=== PATIENT | female | born 1995 | race Caucasian/White ===

== ENCOUNTER 2017-03-01 10:58 | Emergency (ER) | payer BC ==
[~2017-03-01] VITALS: Ht 165.1 cm; Wt 61.2 kg
[~2017-03-01 10:58] MED LIST: AZO STANDARD95 MG PO; COMPAZINE25 MG RC; CYCLOBENZAPRINE10 MG; DILAUDID2 MG PO; HYDROMORPHONE HC2 MG PO; IBUPROFEN600 MG PO; KEFLEX500 MG PO; MACROBID 100 M100 MG PO; PHENERGAN25 MG RC; PRENATAL 19 TA1 EAC1 PO; PROZAC20 MG PO; REGLAN10 MG PO; TRAZODONE HCL50 MG PO; ZOFRAN ODT4 MG PO
[2017-03-01] MEDS ORDERED: AMITRIPTYLINE H75 MG PO (11:18)
[2017-03-01] MEDS ORDERED: FLUOXETINE HCL10 M1 PO (11:19)
[2017-03-01] MEDS ORDERED: ZOFRAN ODT4 MG PO (14:27)
[2017-03-02] MEDS ORDERED: PHENERGAN50 MG PR (14:53)
== END 2017-03-01 15:12 | disposition home or self-care (01) ==
LOC: ED 10:58
DX: G43.A0 Cyclical vomiting, in migraine, not intractable (principal); J45.909 Unspecified asthma, uncomplicated; Z90.49 Acquired absence of other specified parts of digestive tract; Z79.899 Other long term (current) drug therapy
CPT/HCPCS: 74177; 80053; 81001; 82150; 83690; 84703; 85025; 87088; 96361; 96372; 96374; 96375; 99284; J2550; J3480; J3486; J7030; Q9967

== ENCOUNTER 2017-03-02 14:31 | Emergency (ER) | payer BC ==
[~2017-03-02] VITALS: Ht 165.1 cm; Wt 61.2 kg
[~2017-03-02 14:31] MED LIST changes: +AMITRIPTYLINE H75 MG PO; +FLUOXETINE HCL10 M1 PO
[2017-03-02] MEDS ORDERED: PHENERGAN50 MG PR (14:53)
== END 2017-03-02 16:14 | disposition home or self-care (01) ==
LOC: ED 14:31
DX: G43.A0 Cyclical vomiting, in migraine, not intractable (principal); Z90.49 Acquired absence of other specified parts of digestive tract; Z79.899 Other long term (current) drug therapy
CPT/HCPCS: 96372; 99283; J2550; J3486

== ENCOUNTER 2017-03-03 06:52 | Inpatient (IN) | payer BC ==
[~2017-03-03] VITALS: Ht 165.1 cm; Wt 60.7 kg
[~2017-03-03 06:52] MED LIST changes: +PHENERGAN50 MG PR
--- NOTE | 2017-03-03 09:46 | NUR ---
PATIENT TX FROM ER TO ROOM 123 IN A STRETCHER, PATIENT IS ALERT AND ORIENTED UPON ARRIVAL AND ON RA. SHE HAS KCL AND IV FLUIDS RUNING THROUGH AN IV PUMP. REPORT RECEIVED FROM SHO DENT. PATIENT STANDBY ASSIST UP TO THE BATHROOM TO VOID, ORAL CARE DONE.
--- NOTE | 2017-03-03 10:13 | NUR ---
PATIENT VOIDED 800 MLS OF TEA COLORED URINE, VERY STRONG ODOR TO IT. PATIENT IS STEADY ON HER FEET NO C/O DIZZINESS. NEW BAG OF IV FLUIDS AND IV TUBING HUNG AND IV KCL RUNNING. CLEAR LIQUIDS PROVIDED FOR HER AT THIS TIME.
--- NOTE | 2017-03-03 10:31 | NUR ---
REPORT RECIEVED FROM JAILENE NOGUERA WHOM SHE CHECKED IN. PT STATES THAT SHE IS FEELING PRETTY GOOD CURRENTLY. THE K+ IS BURNING HER HAND. FIXED IV TO RUN CONCURRENT, PT STATES IT FEELS BETTER.
--- NOTE | 2017-03-03 11:44 | NUR ---
PT APPEARS TO BE RESTING WITH EYES CLOSED. IVF INFUSING WNL.
--- NOTE | 2017-03-03 13:34 | NUR ---
PT CONTINUES TO REST IN BED WITH EYES CLOSED. APPEARS TO HAVE HAD A CLEAR TRAY AND DRANK A SMALL AMT.
--- NOTE | 2017-03-03 15:00 | NUR ---
PT AWAKE AND ASKED FOR WARM BLANKETS. STATES SHE TRIED TO EAT SOME JELLO BUT IT MADE HER NAUSEOUS. CHANGED GOWN SHE WAS SWEATY. PT DENIES CONCERNS.
--- NOTE | 2017-03-03 18:04 | NUR ---
PTCALLED TO SAY THAT SHE IS NAUSEOUS AGAIN. ADMINSTERED ZOFRAN. PT ASKEE FOR DILAUIDID. WILL CALL AND LET DR BURCIAGA KNOW.
--- NOTE | 2017-03-03 18:56 | NUR ---
DR BURCIAGA IN TO SEE PT. PT COMPLAINING OF MID ABDOMINAL PAIN. STATES THAT DILAUIDID OR MORPHINE ARE THE ONLY THINGS THAT HELP THE PAIN. DR EXAMINED AND STATED THAT HE WOULD ORDER A SMALL DOSE OF MORPH.
--- NOTE | 2017-03-03 19:15 | NUR ---
SHIFT REPORT RECIEVED. PATIENT IN THE SHOWER INDEPENDENTLY.
--- NOTE | 2017-03-03 19:45 | NUR ---
PATIENT REQUESTED PRN PAIN MEDS, WHICH WAS GIVEN TO HER. RATED PAIN AT 8/10 IN HER UPPER ABD. PATIENT RESTING IN BED. STATES SHE HAS NOT VOMITED FOR CLOSE TO 30 MINS. CALL LIGHT IN REACH.
--- NOTE | 2017-03-03 20:58 | NUR ---
PRN MEDS GIVEN FOR NAUSEA. PATIENT HAD 300MLS OF LIGHT GREEN EMESIS. EVEING MEDS GIVEN PER ORDER. NEW FLUIDS STARTED PER ORDER. IV SITE WNL. PATIENT HAS FRIEND IN THE ROOM. PATIENT REQUESTING MD BE CONTACTED TO REQUEST PRN KEYSHAID. PATIENT STATES "THAT IS THE ONLY THING THAT HELPED IN THE ER EARLIER". EDUCATED PATIENT AND SHE AGREES TO STICK TO CARE PLAN THAT IS IN PLACE NOW. CALL LIGHT IN REACH.
--- NOTE | 2017-03-03 22:20 | NUR ---
PATIENT REQUESTED WARM BLANKETS. STATES THE PRN BENADRYL HELPED HER NAUSEA. STATES HER STOMACH IS HURTING BUT DOES NOT FEEL LIKE SHE NEEDS TO THROW UP AT THIS TIME. CALL LIGHT IN REACH. DENIES ANY FURTHER NEEDS AT THIS TIME.
--- NOTE | 2017-03-03 23:00 | NUR ---
PATIENT REQUESTING PRN PAIN MEDS, WHICH WERE GIVEN TO HER. SHE IS HAVING EPIGASTRIC AND UPPER ABD PAIN. STATES IT FEELS SORE AND BURNING. VS DONE, WNL. PATIENT STATES NAUSEA HAS IMPROVED SLIGHTLY. RESTING IN BED. IVF INFUSING. CALL LIGHT IN REACH.
--- NOTE | 2017-03-03 23:32 | NUR ---
PATIENT REQUESTED WARM BLANKETS. PROVIDED BLANKETS AND A HEAT PACK. PATIENT REPORTS HER PAIN HAS IMPORVED TO A 5/10. WILL CONTINUE TO MONITOR.
--- NOTE | 2017-03-04 00:25 | NUR ---
PATIENT REQUESTED PRN NAUSEA MEDS, WHICH WERE GIVEN TO HER. PATIENT STATES THAT NAUSEA HAS IMPORVED. NO MORE VOMITING AT THIS TIME. CALL LIGHT IN REACH. PATIENT WATCHING TV.
--- NOTE | 2017-03-04 03:00 | NUR ---
PATIENT RESTING IN BED. EYE CLOSED. RR16. CALL LIGHT IN REACH.
--- NOTE | 2017-03-04 05:10 | NUR ---
PATIENT REQUESTED MORE WARM BLANKETS AND PRN NAUSEA MEDS, WHICH WERE PROVIDED. NEW BAG OF FLUIDS STARTED. IV SITE WNL. PATIENT DENIES NEED FOR PRN PAIN MEDS. STATES THAT HER PAIN IS "FINE" RIGHT NOW. CALL LIGHT IN REACH.
--- NOTE | 2017-03-04 05:23 | NUR ---
PATIENT RESTED ON AND OFF THROUGHOUT THE NIGHT. NAUSEA HAS IMPROVED THROUGHOUT NIGHT. PRN MEDS FOR NAUSEA GIVEN X3. EMESIS X2 ON EVEING SHIFT. IVF INFUSING. INDEPENDENT IN ROOM. PRN PAIN MEDS GIVEN X2. PATIENT REQUEST FREQUENT WARM BLANKETS AND HEATING PACKS FOR COMFORT. CLEAR LIQUIDS, TOLERATING SMALL SIPS OF WATER.
--- NOTE | 2017-03-04 06:57 | NUR ---
PATIENT RESTING IN BED. REPORTED PAIN AT 6/10. PATIENT APPEARED VERY UNCOMFORTABLE AND RESTLESS. WARM BLANKETS PROVIDED. PRN PAIN MEDS ADMINISTERED. PATIENT STATES NAUSEA IS MINIMAL AT THE MOMENT. CALL LIGHT IN REACH.
--- NOTE | 2017-03-04 07:40 | NUR ---
REPORT RECEIVED FROM PAUL DENT AT 0710. PT SLEEPING IN BED. IVF INFUSING AT 125. ALLOWING PATIENT TO SLEEP NOW.
--- NOTE | 2017-03-04 07:51 | NUR ---
PATIENT AWAKE IN BED. WHITEBOARD UPDATED. REFILLED ICE WATER, MADE NEW HEAT PACKS.
--- NOTE | 2017-03-04 09:34 | NUR ---
REFRESHED PATIENT WATER, EMPTIED HAT IN TOILET
--- NOTE | 2017-03-04 11:44 | NUR ---
PATIENT IN BED ASLEEP. DOING WELL.
--- NOTE | 2017-03-04 12:48 | NUR ---
PATIENT C/O NAUSEA, PATIENT GIVEN 4MG OF ZOFRAN IV AT THIS TIME. NEW BAG OF IV FLUID HUNG AT THIS TIME.
--- NOTE | 2017-03-04 13:57 | NUR ---
PT AMBULATED HALLS AFTER ZOFRAN TO TRY TO RELIEVE ABD PAIN PER NURSE SUGGESTION. PT REPORTED DECREASE IN PAIN WITH AMBULATION. PT FOUND LYING IN BED AND REPORTS ABD PAIN. CONVENED WITH DR BURCIAGA ABOUT PLAN OF CARE. WILL ENCOURAGE PATIENT TO SIT UP AND AMBULATE. HOT PACK PROVIDED. ABD PAIN DESCRIBED 7/10 AND "TINY PUNCHES ALL OVER MY STOMACH THAT COME AND GO". WILL SEE IF PAIN RESOLVES WITH NON-PHARM METHODS.
--- NOTE | 2017-03-04 14:31 | NUR ---
PT HAD 400ML EMESIS INTO EMESIS BAG. COMPAZINE AND MORPHINE GIVEN FOR NAUSEA AND ABDOMINAL PAIN.
--- NOTE | 2017-03-04 15:47 | NUR ---
PATIENT DOING WELL. NURSE GOT NEW HEAT PACK FOR PATIENT.
--- NOTE | 2017-03-04 16:13 | NUR ---
HELPED SHAMPOO AND CONDITION PATIEN'T HAIR AND CHANGED BED LINEN. STILL IN SHOWER.
--- NOTE | 2017-03-04 17:35 | NUR ---
pt given zofran at 1700. bile-colored emesis at 1730. will attempt to give KCL PO tabs if able.
--- NOTE | 2017-03-04 17:47 | NUR ---
VOMITED 750ML TODAY. ZOFRAN AND COMPAZINE GIVEN PRN. MORPHINE GIVEN X1. LR+20KCL @ 65. INDEPENDENT IN ROOM. LAC IV S/L. C/O ABDOMINAL PAIN.
--- NOTE | 2017-03-04 20:00 | NUR ---
RECEIVED REPORT AT 1900. FOUND PT IN BED, PT DENIED N/V AT THAT TIME. PAIN IS TOLERABLE STATED BY PT. PT IS IN BED WATCHING TV
--- NOTE | 2017-03-04 22:00 | NUR ---
V/S ARE WDL, BOWEL TONES ARE PRESENT IN ALL QUADRANTS, PT HAD SOME NAUSEA. COMPRAZINE WAS GIVEN PER ORDER. PT HAS HEAT PACKS ON ABD. ALL LOBES ARE CLEAR. NO NEW ISSUES NOTED SO FAR. PT SO FAR IS ONLY ABLE TO TOLERATE A CLEAR LIQUID DIET.
--- NOTE | 2017-03-05 00:38 | NUR ---
PT IS SLEEPING AT THIS TIME.
--- NOTE | 2017-03-05 03:12 | NUR ---
PAIN IS WELL CONTROLLED WITH PRN PAIN MEDS AND SO IS N/V. PT IS PASSING GAS AND IS ABLE TO HOLD CLEAR LIQUIDS. NO EMESIS THIS SHIFT SO FAR. WILL TRY SALTINES LATER THIS MORNING. PT BACK IN BED AT THIS TIME.
--- NOTE | 2017-03-05 06:01 | NUR ---
V/S ARE WDL, I&O ARE WDL, NAUSEA IS WELL CONTROLLED WITH COMPAZINE, PAIN IS WELL CONTROLLED WIT PRN PAIN MEDS, PT DID NOT VOMIT THIS SHIFT AND WILL TRY SOME TOAST OR CRACKERS FOR BREAKFAST. BOWEL TONES ARE ACTIVE, ABD IS TENDER TO TOUCH. OTHERWISE NO NEW ISSUES NOTED.
--- NOTE | 2017-03-05 06:30 | NUR ---
REFILLED ICE WATER. REQUESTED 2 HOTPACKS.
--- NOTE | 2017-03-05 07:45 | NUR ---
PT SLEEPING. UPDATE BORD AND LET SLEEP. CHECK ON LATER
--- NOTE | 2017-03-05 08:00 | NUR ---
PT SLEEPING SOUNDLY, RESP EVEN AND UNLABORED.
--- NOTE | 2017-03-05 10:00 | NUR ---
PT SITTING UP IN BED. ATE TOAST AND EMELYN WELL AFTER BEING PREMEDICATED WITH ZOFRAN. REQUESTING TO ORDER A COUPLE MORE THINGS TO EAT. DENIES PAIN OR OTHER CONCERNS. ALERT AND ORIENTED. CALL LIGHT WITHIN REACH. INDEPENDENT IN ROOM.
[2017-03-05] MEDS ORDERED: PROCHLORPERAZIN10 MG PO (11:24)
[2017-03-05] MEDS ORDERED: ONDANSETRON HCL4 MG PO (11:26)
--- NOTE | 2017-03-05 11:46 | NUR ---
PT AWAKE IN BED. ORDERED PT SOME FOOD. PT IS DOING WELL. GAVE HER SOME DEODERANT. CALL LIGHT IN REACH.
== END 2017-03-05 13:56 | disposition home or self-care (01) | DRG 683 ==
LOC: ED 06:52 → MS 09:24
PROVIDERS: ADMIT Internal Medicine
DX: N17.9 Acute kidney failure, unspecified (principal); E87.2 Acidosis; E87.6 Hypokalemia; F39 Unspecified mood [affective] disorder; E87.5 Hyperkalemia
CPT/HCPCS: 36415; 80048; 80069; 81001; 82010; 82150; 83036; 83690; 83735; 84703; 85025; 87088; 87184; 96361; 96365; 96375; 99285; J0780; J1170; J1200; J2270; J2405; J2550; J3480; J7030; J7120

== ENCOUNTER 2017-03-08 11:38 | Emergency (ER) | payer BC ==
[~2017-03-08] VITALS: Ht 165.1 cm; Wt 60.7 kg
[~2017-03-08 11:38] MED LIST changes: +ONDANSETRON HCL4 MG PO; +PROCHLORPERAZIN10 MG PO
[2017-03-08] MEDS ORDERED: ONDANSETRON ODT8 MG PO (17:38)
== END 2017-03-08 17:45 | disposition home or self-care (01) ==
LOC: ED 11:38
DX: E87.6 Hypokalemia (principal); G43.A0 Cyclical vomiting, in migraine, not intractable; F17.200 Nicotine dependence, unspecified, uncomplicated; Z90.49 Acquired absence of other specified parts of digestive tract; Z79.899 Other long term (current) drug therapy
CPT/HCPCS: 36415; 80053; 81001; 83690; 84132; 84703; 85025; 96365; 96367; 96372; 96375; 96376; 99284; J1200; J2405; J2765; J3480; J3486; J7030

== ENCOUNTER 2017-03-21 16:05 | Emergency (ER) | payer BC ==
[~2017-03-21] VITALS: Ht 165.1 cm; Wt 59.0 kg
[~2017-03-21 16:05] MED LIST changes: +ONDANSETRON ODT8 MG PO
== END 2017-03-21 19:07 | disposition home or self-care (01) ==
LOC: ED 16:05
DX: G43.A0 Cyclical vomiting, in migraine, not intractable (principal); J45.909 Unspecified asthma, uncomplicated; Z87.891 Personal history of nicotine dependence; Z90.49 Acquired absence of other specified parts of digestive tract; Z98.890 Other specified postprocedural states; Z87.440 Personal history of urinary (tract) infections; Z79.899 Other long term (current) drug therapy
CPT/HCPCS: 81001; 84703; 96360; 99283; J7030

== ENCOUNTER 2018-11-18 19:43 | Observation (INO) | payer BC ==
[~2018-11-18] VITALS: Ht 165.1 cm; Wt 48.1 kg
--- OUTSIDE RECORDS SUMMARY | 2018-11-18 19:46 | XMS ---
PreManage Notification: CLAIR MONTANEZ Security Technician Preventative Medicine Events No recent Security Events currently on file CRITERIA MET - Group Notification CARE PROVIDERS [facility] Current PHONE: Unknown TRELL GALLO [facility] Current PHONE: Unknown ANTONINA LEIVATSafai [facility] Current PHONE: Unknown [facility] Current PHONE: Unknown Trell Gallo MD PHONE: Unknown [facility] Primary [facility] Current PHONE: Unknown Nicolle has no Care Guidelines for this patient. [place] VISIT COUNT (12 MO.) 9 Henry Rahman [address] [place], [place] [address] TOTAL 10 NOTE: Visits indicate total known visits. ED/UCC VISIT TRACKING (12 MO.) 11/18/2018 19:44 [facility] [place] TYPE: Emergency COMPLAINT: - ABD PAIN/VOMITING [facility]2018 17:21 [facility] DIAGNOSES: - Generalized abdominal pain - Cellulitis of back [any part except buttock] - Nausea with vomiting, unspecified - ABD PAIN/VOMITING/BLISTERS ON BACK 07/18/2018 07:44 [facility] [place] TYPE: Emergency DIAGNOSES: - NAUSEA/ABD PAIN - Cannabis use, unspecified with other cannabis-induced disorder - Unspecified kidney failure - Periumbilical pain - Dehydration 07/15/2018 08:24 [facility] [place] TYPE: Emergency DIAGNOSES: - vomiting - Cannabis abuse, uncomplicated - Hypokalemia - Cannabis abuse with other cannabis-induced disorder - Dehydration 05/25/2018 07:18 [facility] [place] TYPE: Emergency DIAGNOSES: - abd pain - Cyclical vomiting, not intractable 05/13/2018 22:01 [facility] [place] TYPE: Emergency DIAGNOSES: - Dehydration - Cyclical vomiting, not intractable - ABD PN/VOMITING 04/12/2018 05:50 [facility] [place] TYPE: Emergency DIAGNOSES: - Emesis - Other specified abnormal findings of blood chemistry - Cannabis use, unspecified with other cannabis-induced disorder - Nausea with vomiting, unspecified - Hyperglycemia, unspecified 02/04/2018 07:25 [facility] [place] TYPE: Emergency DIAGNOSES: - Generalized abdominal pain - Hypokalemia - Cyclical vomiting, intractable - n/v, abdominal pain - Dehydration - Cannabis abuse with other cannabis-induced disorder 12/23/2017 11:03 [facility] [place] TYPE: Emergency DIAGNOSES: - Cyclical vomiting, not intractable - abd pain - Urinary tract infection, site not specified 12/18/2017 08:58 [facility] [place] TYPE: Emergency DIAGNOSES: - n/v, abdominal pain INPATIENT VISIT TRACKING (12 MO.) 07/18/2018 07:44 [facility] [place] TYPE: [facility] DIAGNOSES: - Cannabis use, unspecified with other cannabis-induced disorder - Dehydration - Periumbilical pain - Unspecified kidney failure 04/12/2018 05:50 [facility] [place] TYPE: Medical Surgical DIAGNOSES: - Cannabis use, unspecified with other cannabis-induced disorder - Nausea with vomiting, unspecified - Hyperglycemia, unspecified - Other specified abnormal findings of blood chemistry - Cyclical vomiting, intractable 12/18/2017 08:58 [facility] [place] TYPE: Medical Surgical DIAGNOSES: - Dehydration - Cyclical vomiting, not intractable [email or web address]
--- NOTE | 2018-11-18 23:45 | NUR ---
REPORT RECIEVED FROM ED. pt ARRIVED. AMBULATED TO BED FROM STRETCHER. ABRASIONS/HYDE ON BACK, pt STATED "THOSE ARE FROM THE SHOWER". pt REPORTS NAUSEA AND 8/10 PAIN IN HER ABD. PRN PAIN MEDICATION GIVEN (SEE MAR). SISTER AT BEDSIDE. WARM PACK PROVIDED. pt UP TO SHOWER, INDEPENDENT IN ROOM. CALL LIGHT WITHIN REACH.
--- NOTE | 2018-11-19 00:27 | NUR ---
pt REPORTED PAIN IS "SLIGHTLY BETTER" NAUSEA MEDICATION GIVEN (SEE MAR). NEW HOT PACK PROVIDED. CALL LIGHT WITHIN REACH. NO FURTHER REQUESTS AT THIS TIME.
--- NOTE | 2018-11-19 01:28 | NUR ---
ROUNDED ON pt. REPORTED THAT THERE HAS BEEN NO RELIEF FROM PAIN MEDS. NO REQUESTS AT THIS TIME. CALL LIGHT WTIN REACH.
--- NOTE | 2018-11-19 02:00 | NUR ---
PATIENT FOUND UP IN THE SHOWER. REPORTS ONGOING NAUSEA AND ABD PAIN. TEACHING SPECIALISTS ASSISTED PATIENT BACK TO BED. PATIENT DECLINED TO PUT GOWN ON. IV SITE WET, REENFORCED WITH TAPE. PATIENT REQUESTING PAIN MEDS. PRN MORPHINE PROVIDED, BENADRYL FOR NAUSEA. DISCUSSED IMPORTANCE OF CALLING FOR ASSITANCE AND NOT GETTING OUT OF BED WITH IV FLUIDS AND SEDATING DRUGS. PATIENT AGREEABLE. DENIES FURTHER NEEDS. TEACHING SPECIALISTS IN ROOM FOR VS.
--- NOTE | 2018-11-19 03:02 | NUR ---
CALL LIGHT ON. pt UP TO SHOWER, IV WRAPPED. CALL LIGHT WITHIN REACH.
--- NOTE | 2018-11-19 04:35 | NUR ---
MEDICATIONS DUE. pt RATED PAIN 10. PRN PAIN MEDS AND NAUSEA MEDS GIVEN (SEE MAR). ASSESSMENT DONE. WARM PACK PROVIDED. pt UP TO SHOWER. CALL LIGHT WITHIN REACH.
--- NOTE | 2018-11-19 04:42 | NUR ---
pt ARRIVED FROM ED. RESTLESS. FREQUENT PRN PAIN MEDS AND NAUSEA MEDS GIVEN. pt UP TO SHOWER MULTIPLE TIMES. IVF INFUSING. HAS YET TO VOID. NPO AT THIS TIME. INDEPENDENT IN ROOM. USES CALL LIGHT APPROPRIATELY.
--- NOTE | 2018-11-19 05:45 | NUR ---
PRN NAUSEA MED GIVEN (SEE MAR). VITAL SIGNS TAKEN. NO URINE OUTPUT AT THIS TIME, pt SAID "I FEEL LIKE I MIGHT HAVE TO GO". pt UP TO SHOWER. PROVIDED CONDITIONER AND A BRUSH. [facility]
--- NOTE | 2018-11-19 08:00 | NUR ---
PT UP IN SHOWER INDEPENDENTLY UPON ENTERING ROOM. PT REPORTS THAT THE HOT SHOWER "IS ONE OF THE ONLY THINGS THAT HELPS ME FEEL BETTER." PT ALERT AND ORIENTED. STEADY ON FEET. NOTED MODERATE SKIN BREAKDOWN TO MULTIPLE SPOTS ALONG SPINE AND ON THE POSETERIOR ILIAC SPINE. PT REPORTS "FROM LYING IN THE SHOWER AT HOME FOR SO LONG. THIS ISN'T BAD IT HAS BEEN BEFORE." SPOTS SCABBED OVER WITH AREAS OF NON BLANCHABLE REDNESS. NO DRAINAGE NOTED. MULTIPLE BLANKETS PLACED ON SHOWER CHAIR FOR PT TO HELP REDUCE PRESSURE. PT REPORTS HAVING A COUPLE EPISODES OF EMESIS THIS AM. RATING 7/10 ABD PAIN.
--- NOTE | 2018-11-19 10:25 | NUR ---
PT JUST GETTING OUT OF SHOWER. MEDICATED WITH 1MG IV HALDOL FOR ABD PAIN PER DR. KAPOOR. PT INSTRUCTED TO STAY IN BED FOR THE TIME BEING, EDUCATED ON POTENTIAL DECERASE IN BP. EDUCATED TO CALL FOR ANY ASSISTANCE OUT OF BED. PT REQUESTED TO GET BACK IN SHOWER SHORTLY AFTER TOOL POLISHING MACHINE OPERATOR. BP STABLE ABD PT DENIES DIZZINESS. THIS RN ASSISTED PT TO SHOWER.
--- NOTE | 2018-11-19 11:50 | NUR ---
PT OUT OF SHOWER AFTER BEING IN AND OUT MOST OF THE MORNING. SITTING IN BED IN THE NUDE, PT DOESN'T LIKE WEARING GOWN. CONT TO REPORT ABD PAIN, GRABS ABD AND ROLLS AROUND IN BED. MEDICATED WITH A SECOND MILLIGRAM OF IV HALDOL. CALL LIGHT WITHIN REACH.
--- NOTE | 2018-11-19 12:05 | NUR ---
REDRESSED LEFT HAND IV DRESSING WAS WET D/T PT CONT TO GET IN THE SHOWER WITH IV UNCOVERED. SITE WITHOUT REDNESS, FLUSHES EASILY.
--- NOTE | 2018-11-19 12:22 | NUR ---
Patient has been in the shower most the morning. patient comes out for a few min and than right back in. say it helps her pain.
--- NOTE | 2018-11-19 13:28 | NUR ---
PT IN SHOWER VIDEO CHATTING ON HER PHONE. PT WANTED THE MD CONTACTED TO GET MORPHINE AGAIN, MD WANTS OTHER MEASURES FIRST. TYLENOL PO PRN GIVEN AND BENEDRYL 25MG I.V. PRN GIVEN. WILL MONITOR.
--- NOTE | 2018-11-19 14:23 | NUR ---
PT SITTING IN SHOWER ON SHOWER CHAIR. MEDICATED WITH IV COMPAZINE FOR NAUSEA. PT MORE TALKATIVE AT THIS TIME, SMILING, CONVERSING EASILY. REPORTS THAT SHE DRANK SOME JUICE FROM CLEAR LIQUID TRAY "REALLY FAST AND MY STOMACH DIDN'T LIKE IT." CALL LIGHT WITHIN REACH.
--- NOTE | 2018-11-19 14:36 | NUR ---
PT REPORTS TYLENOL AND BENEDRYL NOT EFFECTIVE, SHE IS IN SHOWER ON VIDEO CHAT WITH BOYFRIEND, PT IS RELAXED NO SHAKING, SHE REPORTS SHE IS COMFORTABLE LONG SHE STAYS IN THE SHOWER. UPDATED.
--- NOTE | 2018-11-19 16:51 | NUR ---
PT REPORTS DISCOMFORT AT LEFT WRIST IV. NOTED TO HAVE SWELLING AND SLIGHTLY BLANCHED SKIN JUST ABOVE SITE. IVF STOPPED AND IV DC'D AT THIS TIME. NEW 22 G IV STARTED IN LEFT FOREARM. MEDICATED PT WITH 2MG IV HALDOL FOR 9/10 ABD PAIN. PT SITTING UP IN BED QUITELY BUT LEANING OVER GRASPING ABD. AGREEABLE TO HALDOL ADMINISTRATION BUT STATES "IT HASN'T DONE ANYTHING FOR ME, THE ONLY THING HELPING MY PAIN IS BEING IN THE SHOWER. I WANT SOMETHING ELSE FOR PAIN." BELCHING OFTEN, CONT TO REPORT NAUSEA WITHOUT EMESIS THIS AFTERNOON. FRIEND AT BEDSIDE. CALL LIGHT WITHIN REACH.
--- NOTE | 2018-11-19 17:28 | EKG ---
[facility] [address] [facility] [place], [place] [address] Signed Normal sinus rhythm with sinus arrhythmia Normal ECG No previous ECGs available Confirmed by DANILO KAPOOR DO ([id number]) on 11/19/2018 5:28:39 PM Electronically Signed By: DANILO KAPOOR DO 11/19/18 1728 PATIENT NAME: CLAIR MONTANEZ MISTI Electrocardiogram DATE OF : [birth year] PHYSICIAN: DANILO KAPOOR DO REPORT #: [id number] REPORT IS CONFIDENTIAL AND NOT TO BE RELEASED WITHOUT AUTHORIZATION
--- NOTE | 2018-11-19 18:53 | NUR ---
PT SITTING IN BED, DRESSED NOW AFTER HAVING BEEN IN AND OUT OF THE SHOWER THE ENTIRE SHIFT. PT STATES "I FEEL BETTER NOW THAN I HAVE ALL DAY, I WAS ACTUALLY ABLE TO SLEEP FOR A COUPLE HOURS." APPEARS DROWSY NOW. FALLS ASLEEP SHORTLY AFTER CONVERSING WITH THIS RN. SISTER AT BEDSIDE. CALL LIGHT WITHIN REACH.
--- NOTE | 2018-11-19 19:10 | NUR ---
BEDSIDE REPORT RECEIVED FROM JAILENE HOLLAND. PT IN SHOWER. IVF INFUSING WNL ORDERED. NO REQUESTS AT THIS TIME.
--- NOTE | 2018-11-19 22:30 | NUR ---
PT ASSESSMENT COMPLETE. PT C/O NAUSEA AND 7/10 PAIN, FOLDED OVER IN BED. PRN MORPHINE AND ZOFRAN ADMINISTERED. PRN HALDOL PER REQUEST. PT REFUSES PRN CASAICIN, STATES IT DOES NOT WORK. RN BACK IN ROOM AFTER ZOFRAN ADMINISTRATION, PRN TYLENOL PO ADMINISTERED. PT BACK IN SHOWER AT THIS TIME. ICE WATER REFILLED. IVF INFUSING WNL ORDERED.
--- NOTE | 2018-11-20 00:25 | NUR ---
CHECKED ON PT, LYING IN BED AWAKE. C/O "STOMACH BOTHERING HER". PRN NAUSEA MEDICATION ADMINISTERED. PT RESTING IN BED WITH EYES CLOSED WHEN RN LEAVES ROOM. CALL LIGHT IN REACH. IVF INFUSING ORDERED.
--- NOTE | 2018-11-20 03:56 | NUR ---
CHECKED ON PT. APPEARS TO BE SLEEPING, RESTING IN BED WITH EYES CLOSED. RR 18. IVF INFUSING ORDERED. LIGHTS OFF IN ROOM.
--- NOTE | 2018-11-20 04:48 | NUR ---
CALL LIGHT ANSWERED. PT IN SHOWER AT THIS TIME. STATES PAIN WAS 6/10 WHILE LYING IN BED, STATES "IT'S BETTER NOW THAT I'M IN THE SHOWER." PRN NAUSEA AND PAIN MEDICATION ADMINISTERED. IVF INFUSING WNL ORDERED. ICE WATER PROVIDED. URINE HAT EMPTIED, CLEAR YELLOW URINE. NO ADDITIONAL REQUESTS AT THIS TIME.
--- NOTE | 2018-11-20 05:47 | NUR ---
PT UP IN SHOWER FOR LONG PERIODS OF TIME FOR PAIN CONTROL. REFUSES CAPSACIN ADMINISTRATION. PRN MORPHINE X 1 FOR INTENSE PAIN WITH NAUSEA. NO EMESIS, PRN NAUSEA MEDICATIONS ADMINISTERED THROUGHOUT SHIFT. ABDOMEN SOFT. BOWEL TONES ACTIVE. PRN HALDOL ADMINISTERED THROUGHOUT SHIFT. PT COMPLIANT, USING CALL LIGHT. INDEPENDENT IN ROOM. IVF INFUSING WNL THROUGHOUT SHIFT ORDERED.
--- NOTE | 2018-11-20 06:00 | NUR ---
IN PT ROOM. PT APPEARS TO BE SLEEPING, LYING ON BED, BREATHING NON-LABORED. IVF INFUSING WNL. LIGHTS OFF IN ROOM.
--- NOTE | 2018-11-20 06:58 | NUR ---
PT ASSESSMENT COMPLETE. PT RESTING IN BED, VSS. PT C/O 11/29 ABDOMINAL PAIN, NAUSEA. PRN NAUSEA MEDICATION ADMINISTERED. IVF INFUSING WNL ORDERED. HEATING PAD IN PLACE. NO REQUESTS AT THIS TIME. CALL LIGHT IN REACH.
--- NOTE | 2018-11-20 07:33 | NUR ---
PT CURLED UP IN BED, APPEARS TO BE SLEEPING. EYES CLOSED, RESP EVEN AND UNLABORED.
--- NOTE | 2018-11-20 08:35 | NUR ---
PT SITTING ON THE FLOOR IN SHOWER UPON ENTERING ROOM. PT HAD REQUESTED "SOMETHING FOR PAIN". MEDICATED WITH HALDOL AND BENADRYL IV. PT EDUCATED ON MORPHINE ONE TIME DOSE ONLY. PT REPORTS PAIN "HAS GOTTEN A LITTLE BIT BETTER SINCE I GOT HERE BUT NOT MUCH". ALERT AND ORIENTED. RATES PAIN 11/29. CONT TO REPORT THAT SHOWER IS THE ONLY THING THAT PROVIDES ANY RELIEF. STATES "I'M TIRED OF BEING IN HERE" REFERRING TO THE SHOWER. ONLY EMELYN WATER PO AT THIS TIME, DENIES APPETITE FOR ANYTHING ELSE. NO EMESIS OVERNIGHT PER NIGHTSHIFT.
--- NOTE | 2018-11-20 11:11 | NUR ---
PT LYING ON THE FLOOR IN THE SHOWER. RATING PAIN 9/10. MEDICATED WITH PRN OXY. PT DENIES NAUSEA. CLEAR ENSURE AND REGULAR ENSURE LEFT AT BEDSIDE. PT ENCOURAGE TO ATTEMPT ORAL INTAKE OF AT LEAST ENSURE, PT AWARE OF REGULAR DIET STATUS. GIVEN FRESH ICE WATER.
--- NOTE | 2018-11-20 13:42 | NUR ---
TOOL GRINDING TECHNICIAN REPORTED PT REQUESTING PAIN MEDICATION. PT SITTING IN SHOWER. MEDICATED WITH COMPAZINE AND TYLENOL. PT DRANK FULL 237ML BOTTLE OF CLEAR ENSURE AND ABOUT HALF OF ENSURE ENLIVE. EMELYN WELL SO FAR. PT REPORTS "THE OXY SEEMED TO HELP A LITTLE." REQUESTED INCREASE IN DOSAGE. WILL DISCUSS WITH DR. KAPOOR. PT DRINKING LARGE AMOUNTS OF ICE WATER.
--- NOTE | 2018-11-20 14:00 | NUR ---
PT IS IN SHOWER UNABLE TO DO VITAL SIGNS WILL TRY AGAIN WHEN PT IS OUT
--- NOTE | 2018-11-20 15:18 | NUR ---
PT SITTING IN SHOWER. MEDICATED WITH 10MG PRN OXY FOR 7/10 PAIN.
--- NOTE | 2018-11-20 15:38 | NUR ---
PT HAS BEEN IN AND OUT OF SHOWER ALL DAY PT IS RESTING IN BED NOW WITH CALL LIGHT IN REACH. VITALS TAKEN AND CHARTED
--- NOTE | 2018-11-20 17:30 | NUR ---
PT IN BED, APPEARS TO BE SLEEPIN SOUNDLY. SISTER IN BED WITH PT. DENIES NEEDS OR CONCERNS AT THIS TIME. CALL LIGHT WITHIN REACH.
--- NOTE | 2018-11-20 18:38 | NUR ---
PT IS RESTING IN BED SAFELY WITH CALL LIGHT IN REACH, PT ORDERED DINNER AND ASKED FOR MORE PAIN MEDS, NURSE INFORMED
--- NOTE | 2018-11-20 19:25 | NUR ---
BEDSIDE REPORT RECEIVED FROM JAILENE HOLLAND. PT RESTING IN BED. C/O PAIN, STATES "IT'S MUCH BETTER", REQUESTING PRN PAIN MEDICATIONS. PRN PAIN MEDCIATIONS ADMINISTERED. IV FLUSHED WNL, FLUIDS RESTARTED AT THIS TIME PT OUT OF SHOWER.
--- NOTE | 2018-11-20 22:37 | NUR ---
PT ASSESSMENT COMPLETE. PT AWAKE, DROWSY. SITTING UP IN BED. PT DENIES ANY PAIN AT THIS TIME. DENIES NAUSEA. IVF INFUSING WNL ORDERED. BOWEL TONES PRESENT, ABD SOFT, NON-TENDER. CALL LIGHT IN REACH. VSS. PO FLUIDS PROVIDED REQUESTED.
--- NOTE | 2018-11-21 00:35 | NUR ---
CALL LIGHT ANSWERED, PRN PAIN MEDICATION ADMINISTERED FOR 3/10 INCREASING PAIN IN ABDOMEN, PT DESCRIBES AN "ACHE THAT COMES AND GOES". SPRITE AND CRANBERRY JUICE PROVIDED REQUESTED. CALL LIGHT IN REACH, NO ADDITIONAL REQUESTS AT THIS TIME.
--- NOTE | 2018-11-21 02:53 | NUR ---
CHECKED ON PT, APPEARS TO BE SLEEPING, LYING ON RIGHT SIDE IN BED. EYES CLOSED, BREATHING NON-LABORED.
--- NOTE | 2018-11-21 04:17 | NUR ---
CALL LIGHT ANSWERED, PT STATES SHE IS HAVING DIFFICULTY STAYING ASLEEP. ASSESSMENT COMPLETE. PT DENIES PAIN. NEW BAG IVF INFUSING WNL ORDERED. CALMING TEA PROVIDED, PT REFUSES SLEEP MASK OR EAR PLUGS. NO ADDITIONAL REQUESTS. CALL LIGHT IN REACH.
--- NOTE | 2018-11-21 05:26 | NUR ---
PT'S PAIN WELL CONTROLLED THROUGHOUT SHIFT WITH PO OXYCODONE. PT RESTING IN BED THROUGHOUT SHIFT. NO C/O NAUSEA. IVF INFUSING WNL ORDERED. INDEPENDENT IN ROOM. TOLERATING REGULAR DIET, ABLE TO EAT 100% OF MASHED POTATOES, PUDDING, NO EMESIS.
--- NOTE | 2018-11-21 06:28 | NUR ---
IN PT ROOM FOR VS. PT APPEARS TO BE SLEEPING, HEAD COVERED WITH BLANKET. BREATHING NON-LABORED. PT ALLOWED TO REST AT THIS TIME.
--- NOTE | 2018-11-21 06:47 | NUR ---
CALL LIGHT ANSWERED. PT C/O 5/ PAIN IN ABDOMEN. PRN PAIN MEDICATION ADMINISTERED. ICE WATER, CRANBERRY JUICE PROVIDED REQUESTED. VSS. PT HAS HOME HEATING PAD IN PLACE. CALL LIGHT IN REACH. IVF INFUSING WNL ORDERED. NO ADDITIONAL REQUESTS AT THIS TIME.
--- NOTE | 2018-11-21 07:20 | NUR ---
RECIEVED BEDSIDE REPORT FROM JAILENE URIAS. PT IN BED, SITTING UP. PT REQUESTED PRN COMPAZINE, STATED THAT SHE HAD FELT SOME NAUSEA THIS AM. PRN COMPAZINE GIVEN. PT HAS PERSONAL SUPPLIES AND CALL LIGHT IN REACH.
--- NOTE | 2018-11-21 09:08 | NUR ---
PER [facility]-PATIENT IS INTERESTED IN [facility]. PATIENT IS TO BE DISCHARGED TODAY FROM THE HOSPITAL. CHW CONTACTED EVELIO MARION DIRECTOR OF [facility]- THEY ARE SENDING SOMEONE OUT TO MEET WITH PATIENT ON RESOURCES BEFORE PATIENT IS DISCHARGED. THEY ARE AWARE OF WHO PATIENT IS, PATIENT HAS HISTORY WITH EVELIO.
--- NOTE | 2018-11-21 09:10 | NUR ---
SPOKE WITH PATIENT IN ROOM. DISCUSSED DIAGNOSIS AND MARIJUANA USE. WAS TOLD BY STAFF PATIENT WAS REQUESTING HELP WITH QUITTING USE. PATIENT CONFIRMS THIS DESIRE. DISCUSSED THAT CHW HAS CALLED [facility] AND THEY CAN COME IN TO SEE HER. SHE IS AGREEABLE TO THIS AND STATES SHE WILL "FOLLOW THROUGH THIS TIME". WE DISCUSSED POSSIBLE HELP FOR ANXIETY THAT SHE STATES SHE USES THE MARIJUANA USE, INCLUDING COUNSELING, OTHER MEDICATIONS THROUGH HER PCP OR MENTAL HEALTH PROVIDERS. WE DISCUSSED THAT SHE CAN CALL HER INSURANCE AND REQUEST SENIOR POLICY ADVISOR OR INFORMATION FOR TREATMENT. QUESTIONS ANSWERED.
[2018-11-21] MEDS ORDERED: OXYCODONE HCL5 MG PO (09:14)
[2018-11-21] MEDS ORDERED: ZOFRAN8 MG PO (09:14)
[2018-11-21] MEDS ORDERED: PROCHLORPERAZIN10 MG PO (09:14)
--- NOTE | 2018-11-21 09:54 | NUR ---
SUSAN FROM [facility] AT BEDSIDE TO SEE PATIENT AT THIS TIME. RN IN ROOM.
--- NOTE | 2018-11-21 10:21 | NUR ---
BOOW RECEIVED CALL FROM [facility]. SHE WILL BE FOLLOWING UP WITH PATIENT ONCE SHE IS DISCHARGED HOME, TOMORROW WILL BE THE NEXT FOLLOW UP WITH PATIENT.
== END 2018-11-21 10:30 | disposition home or self-care (01) ==
LOC: ED 19:43 → MS 19:45
PROVIDERS: ADMIT Student in an Organized Health Care Education/Training Program
DX: K31.89 Other diseases of stomach and duodenum (principal); R11.10 Vomiting, unspecified; N17.9 Acute kidney failure, unspecified; E87.2 Acidosis; F17.200 Nicotine dependence, unspecified, uncomplicated; F32.9 Major depressive disorder, single episode, unspecified; T40.7X5A Adverse effect of cannabis (derivatives), initial encounter; F41.9 Anxiety disorder, unspecified; Z87.440 Personal history of urinary (tract) infections; Z91.14 Patient's other noncompliance with medication regimen
CPT/HCPCS: 36415; 80048; 80053; 81001; 83735; 84100; 84703; 85025; 93005; 93010; 96361; 96374; 96375; 96376; 99284-25; C9113; G0378; J0780; J1200; J1630; J2270; J2405; J2550; J3475; J7030; J7120

== ENCOUNTER 2019-09-28 16:10 | Inpatient (IN) | payer BC ==
[~2019-09-28 16:10] MED LIST changes: +OXYCODONE HCL5 MG PO; +ZOFRAN8 MG PO
--- NOTE | 2019-09-29 10:00 | PR ---
[facility] [address] [place], [place] [address] Signed PP Progress Notes Datetime Report Generated by TRICE: 09/29/2019 10:00 SUBJECTIVE: [id number] Pain: Within normal limits Nausea/Vomiting: Present Vital Signs: [id number] Vital Signs: Reviewed; Within Normal Limits EXAM: [id number] Cardiovascular: Not Done Respiratory: Not Done Abdomen/Uterus: Abnormal Lochia: Normal Vulva/Perineum: Not Done Breasts: Not Done CVA Tenderness: Not Done Extremities: Normal Incision: Not Applicable Progress: Normal Exam Comments: Fundus firm, NT @ U-1. H/H 11.5/33.9, WBC 12.7, plat 120k from 09/27 IMPRESSION/PLAN/PROCEDURES: [id number] Impression: Normal progression Plan: Continue present management Procedures: None Progress Notes: Doing well though still having issues with nausea though no vomiting. She is eating well, however. She had low platelets on admission and will recheck today. Signing Physician: Essence العلي MD Copies: ~ *Electronically Signed* 09/29/19 1000 ESSENCE العلي MD PATIENT NAME: LCAIR MONTANEZ PROGRESS NOTE DATE OF : [birth year] PHYSICIAN: ESSENCE العلي MD RPT #: [id number] REPORT IS CONFIDENTIAL AND NOT TO BE RELEASED WITHOUT AUTHORIZATION
--- NOTE | 2019-09-30 08:06 | PR ---
[facility] [address] [place], [place] [address] Signed PP Progress Notes Datetime Report Generated by TRICE: 09/30/2019 08:06 SUBJECTIVE: [id number] Pain: Within normal limits Nausea/Vomiting: Present Flatus: Yes Bowel Movement: Yes Vital Signs: [id number] Vital Signs: Reviewed; Within Normal Limits EXAM: [id number] Cardiovascular: Normal Respiratory: Normal Abdomen/Uterus: Normal Lochia: Normal Vulva/Perineum: Normal Breasts: Not Done CVA Tenderness: Normal Extremities: Normal Incision: Not Applicable Progress: Normal Exam Comments: Fundus firm U-2 nontender. Pt requested vulvar exam and laceration remains well healed. Pigmentation changes on abdomen c/w alf heating pad use IMPRESSION/PLAN/PROCEDURES: [id number] Impression: Normal progression Other Impression: Cannabinoid hyperemesis - improved Plan: Discharge Procedures: None Progress Notes: Pt seen and examined. Doing well. Continues to struggle w/ cannabinoid hyperemesis. Has not responded to capsasin in the past but responded well to Haldol in the ED in the past. Ambulating, voiding, and tolerating full diet. Pain and lochia minimal. well. No fevers/chills or other concerns. Plan: discharge home to boarder status later today. Will treat N/V w/ IV phenergan, haldol, and zofran. D/C meds: motrin, Zofran ODT, and Phenergan. Signing Physician: Luis Fernando Jovel DO Copies: *Electronically Signed* 09/30/19805 LUIS FERNANDO JOVEL DO PATIENT NAME: CLAIR MONTANEZ PROGRESS NOTE DATE OF : [birth year] PHYSICIAN: LUIS FERNANDO JOVEL DO RPT #: [id number] REPORT IS CONFIDENTIAL AND NOT TO BE RELEASED WITHOUT AUTHORIZATION [facility] [address] [place] [address] Signed ~ *Electronically Signed* 09/30/19805 JOVEL,LUIS FERNANDO Garcia DO PATIENT NAME: CLAIR MONTANEZ PROGRESS NOTE DATE OF : [birth year] PHYSICIAN: LUIS FERNANDO JOVEL DO RPT #: [id number] REPORT IS CONFIDENTIAL AND NOT TO BE RELEASED WITHOUT AUTHORIZATION
== END 2019-09-30 17:55 | disposition home or self-care (01) | DRG 833 ==
LOC: FBCO 16:10 → FBC 16:12
PROVIDERS: ADMIT Obstetrics & Gynecology
DX: O62.3 Precipitate labor (principal); Z3A.39 39 weeks gestation of pregnancy; Z37.0 Single live birth; O99.345 Other mental disorders complicating the puerperium; F12.188 Cannabis abuse with other cannabis-induced disorder; R11.2 Nausea with vomiting, unspecified; Z87.891 Personal history of nicotine dependence; Z86.19 Personal history of other infectious and parasitic diseases
CPT/HCPCS: 36415; 85027; A9270; J1170; J1630; J2405; J2550; J2590

== ENCOUNTER 2021-04-09 16:21 | Inpatient (IN) | payer BC ==
[~2021-04-09] VITALS: Ht 162.6 cm; Wt 46.0 kg
--- OUTSIDE RECORDS SUMMARY | 2021-04-09 16:30 | XMS ---
PreManage Notification: CLAIR MONTANEZ Security Fitness Attendant Events No recent Security Events currently on file CRITERIA MET - Group Notification - [facility] - 2 Visits in 30 Days CARE PROVIDERS ANIA WEEKS Nurse Practitioner: Family Current PHONE: Unknown ANTONINA LEIVA Obstetrics \T\ Gynecology Current PHONE: [phone] Nicolle has no Care Guidelines for this patient. [place] VISIT COUNT (12 MO.) [address] TOTAL 3 NOTE: Visits indicate total known visits. ED/UCC VISIT TRACKING (12 MO.) 04/09/2021 16:22 [facility] [place] TYPE: Emergency COMPLAINT: - NAUSEA [facility]21 13:[facility] DIAGNOSES: - ABD PAIN - Cannabis abuse with other cannabis-induced disorder 09/08/2020 22:18 [facility] [place] TYPE: Emergency DIAGNOSES: - ABD PAIN - Nausea with vomiting, unspecified - Acute kidney failure, unspecified INPATIENT VISIT TRACKING (12 MO.) 09/09/2020 03:44 [facility] TYPE: Medical Surgical COMPLAINT: - RENAL FAILURE, ACIDOSIS, VOMITING DIAGNOSES: 0. Vomiting, unspecified 1. Cyclical vomiting syndrome unrelated to migraine 2. Unspecified severe protein-calorie malnutrition 3. Acute kidney failure, unspecified 4. Acidosis 5. Body mass index [BMI] 19.9 or less, adult 6. Nicotine dependence, cigarettes, uncomplicated 7. Anxiety disorder, unspecified 8. Major depressive disorder, single episode, unspecified 9. Dehydration 10. Other nursing home (current) drug therapy 11. Family history of malignant neoplasm of breast 12. Family history of malignant neoplasm of ovary [email or web address]
--- NOTE | 2021-04-09 19:45 | NUR ---
PT ARRIVED TO ROOM 124, PT ALERT AND ORIETNED, SHE REPORTS NO PAIN AT THIS TIME.
--- NOTE | 2021-04-09 20:48 | NUR ---
CALLED TO NOTIFY OF NEW ORDERS.
--- NOTE | 2021-04-09 21:22 | NUR ---
BENTYL GIVEN IN THE IV INSTEAD OF IM. MD NOTIFIED, ORDERED TO WATCH FOR REDNESS, PAIN AND SWELLING IN VEIN AND IV SITE. TELEPHARMANCY NOTIFIED, SAME INSTRUCTIONS GIVEN. IV FLUSHED. PT DENIES PAIN AT SITE. IV FLUIDS INFUSING PER ORDER.
--- NOTE | 2021-04-09 21:33 | NUR ---
ASSESSMENT COMPLETED. PT UP IN SHOWER ON HER OWN EVEN AFTER EDUCATION ABOUT CALL LIGHTS AND SAFETY, MORE EDUCATION PROVIDED. SCHEDULED MEDS PROVIDED. PT STATES SHE HAS ABD CRAMPING, HOT PACK PROVIDED. IV WNL, CDI, FLUSHED WELL. CLEAR SODA PROVIDED.LUNGS CLEAR, HEART TONES REGULAR. ABD SOFT, TENDER IN RUQ, BOWEL TONES HYPERACTIVE. CMS INTACT. SAFETY EDUCATION PROVIDED. NO OTHER NEEDS. CALL LIGHT IN REACH.
--- NOTE | 2021-04-09 21:50 | NUR ---
IN TO CHECK ON PT, PT IN THE SHOWER, PER RN, TOOK PT OUT OF THE SHOWER, BACK TO BED, PHONE ASSEMBLING MACHINE OPERATOR PROVIDED, HEAT PAD REFRESHED, LET PT KNOW TO CALL US BEFORE GETTING UP, PER RN, SET BED ALARM
--- NOTE | 2021-04-09 22:24 | NUR ---
SCHEDULED MED PROVIDED. PT ASKING FOR NARCOTICS, EDUCATION PROVIDED ABOUT MEDICATIONS SHE IS CURRENTLY PROVIDED FOR PAIN MANAGEMENT. PT REQUESTS THE SHOWER AGAIN, HEAT PACK PROVIDED. SAFETY AND CALL LIGHT EDUCATION PROVIDED. NO OTHER NEEDS. CALL LIGHT IN REACH.
--- NOTE | 2021-04-09 22:45 | NUR ---
PT WAS UP TO THE BATHROOM, BED ALARM RESET AND PT BACK TO BED, RN IN TO CHECK ON PT
--- NOTE | 2021-04-09 22:45 | NUR ---
PT SET BED ALARM OFF, THIS RN INTO ROOM, PT SITTING UP IN BED, ALERT AND ORIENTED. IV POLED UNPLUGGED, EDUCATION PROVIDED TO PT IN REGARDS TO NOT PULLING AT IV SITE, IF PULLED, NEW IV SITE WILL NEED TO BE PLACED. PT AGREES, SHE VERBALIZED SHE IS DIZZY WITH STANDING. THIS RN DISCUSSED MAKING PLAN FOR PT TO SHOWER ON A SCHEDULE FOR SAFETY WITH PRIMARY RN SANDRA.
--- NOTE | 2021-04-09 22:55 | NUR ---
IN TO PROVIDE PT HEAT PACK, PT TRIES TO PUT PACK DIRECTLY TO SKIN, REMINDED PT TO TRY USING A TOWEL OR PILLOW CASE TO WRAP THE PACK, HELP KEEP IT WARMER LONGER AND TO PROVIDE REST FOR HER SKIN, TO NOT BURN IT, OFFERED PILLOW CASE, PT DID NOT USE, TOLD PT TO REMOVE PACK AND GIVE YOUR SKIN A BREAK, PT SEEMS TO AGREE, RN INFORMED
--- NOTE | 2021-04-09 23:08 | NUR ---
PT UP IN SHOWER. PLAN MADE WITH PT TO TAKE A 20 MIN SHOWER EVERY 2 HOURS WHEN RN COMES IN FOR MED ADMINISTRATION. PT AGREES TO PLAN FOR SAFETY. PT BACK IN BED AT THIS TIME. CALL LIGHT IN REACH.
--- NOTE | 2021-04-10 00:18 | NUR ---
PT ALREADY IN SHOWER WITHOUT CALLING. SAFETY EDUCATION PROVIDED. PT REPORTS NAUSEA, PRN MED PROVIDED. PT PAIN 8/10 IN ABD, SCHEDULED MED PROVIDED. NO OTHER NEEDS. CALL LIGHT IN REACH.
--- NOTE | 2021-04-10 00:50 | NUR ---
PT PROVIDED WITH A K-PAD HEATING MACHINE, THIS SUPPLY PERSON IN TO HAVE PT GET OUT OF THE SHOWER WHILE THE K-PAD GOT SETUP AND HEATED, PT STILL REMAINING IN SHOWER, TOLD PT HER IV PUMP WAS ON LOW BATTERY AND SHE SHOULD GET OUT, THEN REMINDED PT SHE HAS BEEN UP TO THE SHOWER FOR AN HOUR NOW, PT DOES NOT GET OUT OF THE SHOWER
--- NOTE | 2021-04-10 02:04 | NUR ---
SCHEDULED MED PROVIDED. PT GETS UP TO SHOWER. ASSESSMENT COMPLETED. NO OTHER NEEDS AT THIS TIME. CALL LIGHT IN REACH.
--- NOTE | 2021-04-10 03:49 | NUR ---
PT REPORTS NAUSEA AND EMESIS, PRN NAUSEA MED PROVIDED. SCHEDULED MED PROVIDED, ABD PAIN 7/10 ACHE. PT IS MORE CALM THAN EARLIER IN THE SHIFT. ICE WATER PROVIDED. PT UP TO SHOWER. SAFETY EDUCATION PROVIDED.
--- NOTE | 2021-04-10 06:00 | NUR ---
SCHEDULED MED PROVIDED. ABD ACHE 11/29. NO OTHER NEEDS. CALL LIGHT IN REACH.
--- NOTE | 2021-04-10 06:30 | NUR ---
PT REPORTS NAUSEA, PRN NAUSEA MED PROVIDED. PT RESTING IN BED. IV WNL, CLEAN AND INTACT. PT DENIES PAIN AT IV SITE. NO REDNESS OR SWELLING. CALL LIGHT IN REACH.
--- NOTE | 2021-04-10 08:00 | NUR ---
Shift report received from JAILENE Lockhart, pt up in bathroom taking a shower, IV site covered, pt instructed to call if any assistance is needed, pt denies any needs at this time
--- NOTE | 2021-04-10 08:40 | NUR ---
PT IN SHOWER. UPDATED WHITE BOARD. NO FURTHER NEEDS AT THIS TIME.
--- NOTE | 2021-04-10 09:58 | NUR ---
MED REC COMPLETED BY PHARMACY
--- NOTE | 2021-04-10 10:00 | NUR ---
Pt sitting up in bed safely w/ call light in reach. Pt c/o pain in abd and nausea, PRN pain and nausea meds given, morning assesment complete, and scheduled meds given per provider orders. Pt denies any other needs at this time
--- NOTE | 2021-04-10 10:24 | NUR ---
PT CURLED UP IN BED. PT PREPARING TO SHOWER AGAIN. CALL LIGHT WITHIN REACH, NO FURTHER NEEDS AT THIS TIME
--- NOTE | 2021-04-10 12:00 | NUR ---
Pt sitting up in bed w/ call light in reach. Pt c/o nausea and 8/10 pain in abdomen, PRN pain and nausea meds given. Pt denies any other needs at this time, JAILENE Lockhart in the room talking w/ pt.
--- NOTE | 2021-04-10 13:14 | NUR ---
Case Managment assessment complete. Patient then requesting to shower. IV is intact and running, it has been covered in plastic wrap and taped for showers. Pt ambulates to shower independantly and is able to start the shower. It is noted that the patiets back is very red, recommended to patient that she not shower with water to hot or have continued heat on spinal area of back. At this time she verbalizes that she understands, and she will be careful.
--- NOTE | 2021-04-10 13:40 | NUR ---
RN NOTIFIED OF LOW INTAKE. PT FOLDED UP IN BED. PT MUBMLING. PT REQUESTS SALTINE CRACKERS. JAILENE BOUCHER NOTIFIED. CALL LIGHT WITHIN REACH, NO FURTHER NEEDS AT THIS TIME.
--- NOTE | 2021-04-10 14:00 | NUR ---
Pt sitting up in bed w/ call light in reach. Pt given hot pack per request.
--- NOTE | 2021-04-10 14:03 | NUR ---
Barney has stated that she used to see Dr. Gallo and [facility], and that she would like to return to [facility] for care even though Dr. Gallo is retired. I have contacted [facility] and was informed that she had missed an appointment with Dr. Brooks. She can be seen on the 06 [address] Brooks at 10:50. They will put her on the schedule for that time and put her on the waitlist. Appointment has been scheduled.
--- NOTE | 2021-04-10 15:35 | NUR ---
I have visited with Sarah regarding the SUSANNE program. She is completely open to having a counselor come in and visit with her. SUSANNE has been contacted, Surya Carlos was point of contact on this call, he states he will have someone come and visit with Sarah today. Sarah was given the SUSANNE brochure, the charge nurse is aware that SUSANNE will come today. Sarah continues to ask for Dr. Cruz, requesting ketamine.
--- NOTE | 2021-04-10 16:00 | NUR ---
Pt resting in bed w/ call light in reach. Pt had previously been showering, when wrap removed from IV site on L arm, swelling noted at the insertion site, unable to flush, pt denies pain and no redness noted, IV removed per protocol. Provider notified, JAILENE Ruffin succesful with new IV start.
--- NOTE | 2021-04-10 17:29 | NUR ---
PT LAYING IN BED WITH BLANKET. PT STARTED DRY HEAVING. PT SAYS THEY ALWAYS GET NAUSEOUS THEY START WAKING UP. CALL LIGHT WITHIN REACH, NO FURTHER NEEDS AT THIS TIME. PT HAS NOT HAD ANY OF THIER DINNER TRAY YET.
--- NOTE | 2021-04-10 18:15 | NUR ---
Pt sitting up in bed w/ call light in reach and friend in room visiting. No needs at this time
--- NOTE | 2021-04-10 19:02 | NUR ---
PT DRESSED IN HOSPITAL GOWN. PT INITIALLY HAD NO OUPUT. PT SAID THEY HADNT BEEN ABLE TO VOID SINCE AROUND LUNCH. THIS SOLUTION MIXER ENCOURAGED PT TO GET UP AMD TRY TO VOID. PT HAD A HIGH OUPUT. PT SAID THEY DIDNT REALIZE THEY NEEDED TO GO THAT BAD. CALL LIGHT WITHIN REACH, NO FURTHER NEEDS AT THIS TIME.
--- NOTE | 2021-04-10 19:23 | NUR ---
SHIFT REPORT RECEIVED FROM SANDER DENT. PT RESTING IN BED. NO NEEDS AT THIS TIME. CALL LIGHT IN REACH.
--- NOTE | 2021-04-10 19:36 | NUR ---
pt reports 7/10 abd ache and nausea. prn pain and nausea meds provided. no other needs. call light in reach.
--- NOTE | 2021-04-10 20:12 | NUR ---
scheduled iv fluid provided.
--- NOTE | 2021-04-10 21:45 | NUR ---
IN TO GET VITALS, PT GETTING BACK FROM THE SHOWER, DINNER TRAY IS FINISHED, FRESH ICE WATER GIVEN, RN IN FOR EVENING MED, HEAT BACK PROVIDED, NO FURTHER CONY THIS TIME
--- NOTE | 2021-04-10 22:29 | NUR ---
ASSESSMENT, VS AND I&O COMPLETED. PT PAIN AN "ACHE" IN ABD 10, SCHEDULED MEDS PROVIDED. GCS 15, A&O X4. LUNGS CLEAR, HEART TONES REGULAR. ABD SOFT, TENDER, BOWEL TONES ACTIVE. CMS INTACT. REDNESS ALONG SPINE AND ABD NOTED. IV WNL, CLEAN AND INTACT, EDUCATION FOR SAFETY AND CARE OF IV PROVIDED. NO OTHER NEEDS AT THIS TIME. CALL LIGHT IN REACH.
--- NOTE | 2021-04-10 23:16 | NUR ---
PT RESTING IN BED, WATCHING TV. CALL LIGHT IN REACH.
--- NOTE | 2021-04-11 01:47 | NUR ---
PT RESTING IN BED. IV FLUIDS INFUSING PER ORDER. CALL LIGHT IN REACH.
--- NOTE | 2021-04-11 03:30 | NUR ---
pt reports nausea and 7/10 abd ache. prn pain and nausea meds provided. assessment completed. iv wnl, iv fluids infusing per order. spinal and abd redness unchanged. pt up to shower.
--- NOTE | 2021-04-11 03:40 | NUR ---
PT CALLED FOR WARM BLANKETS, PROVIDED, NO FURTHER NEEDS AT THIS TIME
--- NOTE | 2021-04-11 05:48 | NUR ---
VS AND I&O COMPLETED. IV SL AT THIS TIME. SCHEDULED MED PROVIDED. PT REPORTS NAUSEA, PRN MED PROVIDED. NO OTHER NEEDS AT THIS TIME. CALL LIGHT IN REACH.
--- NOTE | 2021-04-11 08:00 | NUR ---
Shift report received from JAILENE Lockhart, pt resting in bed safely w/ call light in reach, no needs at this time
--- NOTE | 2021-04-11 10:08 | NUR ---
PT SITTING UP IN BED W/ CALL LIGHT IN REACH, C/O N/V, EMESIS BAG IN TRASH CAN W/ 400ML OF GREEN LIQUID. PRN NAUSE MEDS GIVEN PER PT REQUEST. MORNING ASSESMENT COMPLETE. PT ASKED TO HAVE IV SITE WRAPPED AND SHE WILL BE TAKING A SHOWER IN A FEW MINUTES, JEANNE BEASLEY WRAPPING IV. NO FURTHER NEEDS AT THIS TIME
--- NOTE | 2021-04-11 12:00 | NUR ---
PT JUST FINISHED SHOWERING, SITTING UP IN BED SAFELY W/ CALL LIGHT IN REACH. PT C/O NAUSEA, PRN NAUSEA MEDS GIVEN, PT ABLE TO EAT FOOD AND KEEP IT DOWN. NO OTHER NEEDS AT THIS TIME.
--- NOTE | 2021-04-11 14:34 | NUR ---
PT SITTING UP IN BED W/ CALL LIGHT IN REACH. PT ANXIOUS AND C/O 8/10 PAIN IN ABD, PRN ANXIETY AND PAIN MEDS GIVEN. WARM PACK ALSO GIVEN PER PT REQUEST, NO OTHER NEEDS AT THIS TIME
--- NOTE | 2021-04-11 16:00 | NUR ---
Pt sitting up in bed w/ call light in reach. No needs at this time.
--- NOTE | 2021-04-11 17:57 | NUR ---
this rn received report from yana higgins. this rn to assume care of pt at this time.
--- NOTE | 2021-04-11 18:30 | NUR ---
this rn in pts room per pt request. this rn provided pt with bentaly and 12.5mg of phenergan. pt requesting hot pack that "is actually hot" this rn educated pt about not gettin git too hot because of the redness that has been noted on her skin. pt states understanding. hot pack provided. pts boyfriend in room at this time.
--- NOTE | 2021-04-11 19:16 | NUR ---
SHIFT REPORT RECEIVED FROM LAUREL DENT. PT RESTING IN BED, VISITING WITH BOYFRIEND. NO NEEDS AT THIS TIME. CALL LIGHT IN REACH.
--- NOTE | 2021-04-11 22:00 | NUR ---
ASSESSMENT, VS AND I&O COMPLETED. SCHEDULED MEDS PROVIDED. PT REPORTS NAUSEA AND 8/10 ABD "ACHE", PRN NAUSEA AND PAIN MEDS PROVIDED. ABD SOFT, TENDER, BOWEL TONES ACTIVE. CMS INTACT. IV WNL, FLUSHED WELL. IV FLUIDS INFUSING PER ORDER. REDNESS NOTED TO ABD AND SPINE. EDUCATION ABOUT SKIN CARE PROVIDED. PT UP TO SHOWER. SNACK PROVIDED. CALL LIGHT IN REACH.
--- NOTE | 2021-04-11 22:49 | NUR ---
SANDWICH BOX PROVIDED. NO OTHER NEEDS. CALL LIGHT IN REACH.
--- NOTE | 2021-04-12 00:41 | NUR ---
PT RESTING IN BED. CALL LIGHT IN REACH.
--- NOTE | 2021-04-12 03:14 | NUR ---
PT RESTING IN BED. CALL LIGHT IN REACH.
--- NOTE | 2021-04-12 03:56 | NUR ---
ASSESSMENT COMPLETED. WATER AND JUICE PROVIDED. REDNESS TO SPINE AND ABD UNCHANGED. IV WNL. IV FLUIDS COMPLETE, SL. PT DENIES NAUSEA. NO OTHER NEEDS. CALL LIGHT IN REACH.
--- NOTE | 2021-04-12 05:47 | NUR ---
SCHEDULED MED PROVIDED. PT REPORTS 07/30 ABD ACHE. PT REPORTS NAUSEA, PRN NAUSEA MED PROVIDED. ICE WATER, CRANBERRY JUICE AND CLEAR SODA PROVIDED. NO OTHER NEEDS. CALL LIGHT IN REACH.
--- NOTE | 2021-04-12 07:34 | NUR ---
Shift report received from JAILENE Lockhart, pt resting in bed safely w/ call light in reach. Pt denies any needs at this time
[2021-04-12] MEDS ORDERED: NICOTINE LOZENGE4 MG BUCCAL ×2 (10:34)
[2021-04-12] MEDS ORDERED: HYDROXYZINE PAM25 MG PO (10:34)
[2021-04-12] MEDS ORDERED: PROCHLORPERAZIN10 MG PO (10:34)
== END 2021-04-12 13:20 | disposition home or self-care (01) | DRG 683 ==
LOC: ED 16:21 → MS 18:15
PROVIDERS: ADMIT Internal Medicine; ATTEND Internal Medicine
DX: N17.9 Acute kidney failure, unspecified (principal); E87.1 Hypo-osmolality and hyponatremia; Z20.822 Contact with and (suspected) exposure to COVID-19; E87.6 Hypokalemia; R11.10 Vomiting, unspecified; F11.10 Opioid abuse, uncomplicated; G47.00 Insomnia, unspecified; E86.0 Dehydration; Z71.51 Drug abuse counseling and surveillance of drug abuser; Z87.440 Personal history of urinary (tract) infections; F17.210 Nicotine dependence, cigarettes, uncomplicated; Z90.49 Acquired absence of other specified parts of digestive tract; Z79.899 Other long term (current) drug therapy
CPT/HCPCS: 80048; 80053; 81001; 83735; 84703; 85025; 96365; 96366; 96375; 99284-25; C9803; J0500; J1200; J1650; J1790; J1885; J2405; J2550; J3480; J7030; J7060; J7070; Q0177; U0003